=== PATIENT | male | born 1945 | race Caucasian/White ===

== ENCOUNTER → 2016-12-07 | Outpatient (CLI) | payer BC ==
[~2016-12-07] MED LIST: ADVIN25/60 INH; ALBU1AER9 INH; ASPCH81X PO; ATOR-24 PO; CHOL1000 PO; FEXO1TAB49 PO; LANS30CA12 PO; MULT-506 PO; PLAVIX75 PO; POTA10CA28 PO; RXC5 PO; VNTHFA/IN INH; XRL15 PO
--- NOTE | 2016-12-07 09:34 | DIAGNOSTIC IMAGING REPORT ---
RIGHT HAND MIN 3 VIEWS ROUTINE CLINICAL HISTORY: Right hand pain. Arthritis. COMPARISON: Right thumb radiograph January 10, 2010 FINDINGS: Alignment of the right hand is anatomic. There is severe osteoarthritis of the right first carpometacarpal joint. No fracture or suspicious lesion is identified on this exam. Juxta-articular lucencies are noted adjacent to multiple articulations. There is mild joint space narrowing within multiple articulations of the right hand. There is no periarticular osteopenia. IMPRESSION: 1. Severe osteoarthritis of the right first carpometacarpal joint. 2. Mild to moderate joint space narrowing within multiple interphalangeal joints with osteophytosis which suggest osteoarthritis. 3. Multiple juxta-articular lucencies with sclerotic margins. These could reflect cysts or erosions. Electronically signed by: Riaz Dyer M.D. 12/07/2016 9:32 AM Dictated Date/Time: 12/07/2016 9:29 AM
--- NOTE | 2016-12-07 09:37 | DIAGNOSTIC IMAGING REPORT ---
LEFT HAND 3 VIEWS CLINICAL HISTORY: Arthritis. Hand pain. FINDINGS: 3 views of the left hand are compared to study dated 11/01/2015. The skeletal structures are osteopenic. No fracture is seen. There is osteoarthritic change identified involving the interphalangeal joints, distal greater than proximal. Mild erosive change is seen in the second through fifth distal interphalangeal joints, greatest in the second and third digits. There is advanced arthritic change at the first carpometacarpal articulation with bony sclerosis, subchondral cyst formation, overgrowth, and mild subluxation. Mild degenerative change is seen at the first metacarpophalangeal joint and at the radiocarpal articulation. The overlying soft tissues are within normal limits. IMPRESSION: 1. Osteopenia with no acute bony abnormality identified. 2. Advanced osteoarthritic change is seen at the first carpometacarpal joint. 3. Arthritic change is seen involving the interphalangeal joints, distal greater than proximal. Mild erosive osteoarthritis involving the distal interphalangeal joints is detailed above. Electronically signed by: Angelo Hauser M.D. 12/07/2016 9:36 AM Dictated Date/Time: 12/07/2016 9:33 AM
[2016-12-07 10:45] LABS: RHEUMATOID FACTOR < 10.0 U/mL (0-15); TOTAL IRON BINDING CAPACITY 300 mcg/dl (250-450)
== END | disposition home or self-care (01) ==
LOC: C.RAD1850 09:13
PROVIDERS: ATTEND Internal Medicine Rheumatology
DX: M19.041 Primary osteoarthritis, right hand (principal); M25.541 Pain in joints of right hand

== ENCOUNTER → 2017-01-08 | Outpatient (CLI) | payer BC ==
--- NOTE | 2017-01-08 11:09 | DIAGNOSTIC IMAGING REPORT ---
RENAL ULTRASOUND CLINICAL HISTORY: Renal cyst. Nephrolithiasis. COMPARISON STUDY: CT of the abdomen and pelvis April 08, 2016 and IVP July 19, 2016. TECHNIQUE: Sonography of the kidneys and the urinary bladder was performed. FINDINGS: A fluid-filled abnormality along the left lateral aspect of the bladder represents a portion of the penile implant. There is no hydronephrosis. The right kidney measures 11.3 x 5.2 x 5 cm and the left measures 11.1 x 5.6 x 5.8 cm. Several bilateral renal calculi measure up to approximately 6 mm. There is a 1.6 cm right renal cyst with a thin septation. Mild prominence of the left renal pelvis is noted. There is no hydronephrosis. Both ureteral jets were identified. IMPRESSION: 1. No hydronephrosis. Mild dilatation of the left renal pelvis without hydronephrosis. 2. Nephrolithiasis. 3. Several renal cysts. Electronically signed by: Riaz Dyer M.D. 01/08/2017 11:08 AM Dictated Date/Time: 01/08/2017 11:05 AM
== END | disposition home or self-care (01) ==
LOC: C.ULTR 10:16
PROVIDERS: ATTEND Urology
DX: N20.0 Calculus of kidney (principal); N28.1 Cyst of kidney, acquired

== ENCOUNTER 2017-07-11 21:44 | Emergency (ER) | payer BC ==
[~2017-07-11] VITALS: Ht 165.1 cm; Wt 80.5 kg
[2017-07-11 21:50] VITALS: TEMP 36.6; Ht 165.1 cm; Wt 80.5 kg
[2017-07-11 22:46] LABS: BASO % 0.1 %; BASO ABS # 0.01 K/uL (0-0.2); COMPLETE YES; EOS % 1.6 %; HEMATOCRIT 42.7 % (42-52); IG% 0.1 %; LYMPH % 21.9 %; MEAN CORPUSCULAR HEMOGLOBIN 30.6 pg (25-34); MEAN CORPUSCULAR HGB CONC 34.4 g/dl (32-36); MEAN PLATELET VOLUME 9.4 fL (7.4-10.4); MONO % 8.8 %; NEUT % 67.5 %; PLATELET COUNT 142 K/uL (130-400); WHITE BLOOD COUNT 7.29 K/uL (4.8-10.8)
[2017-07-11 22:50] VITALS: O2SAT 95
[2017-07-11 22:56] LABS: PARTIAL THROMBOPLASTIN RATIO 1.1; PROTHROMBIN TIME (PATIENT) 10.3 SECONDS (9.0-12.0)
[2017-07-11 22:59] LABS: POINT OF CARE TROPONIN I < 0.030 ng/ml (0-0.045)
--- NOTE | 2017-07-11 23:01 | DIAGNOSTIC IMAGING REPORT ---
SINGLE VIEW CHEST CLINICAL HISTORY: Right upper back pain. FINDINGS: An AP, portable, upright chest radiograph is compared to study dated 07/07/2016 and correlated with chest CT dated 04/08/2016. The examination is degraded by portable technique and patient rotation. The heart is top normal for projection and there is atherosclerotic calcification of the thoracic aorta. The pulmonary vasculature is noncongested. Chronic interstitial thickening similar to previous. Bibasilar airspace opacities are typical in appearance for atelectasis. No large pleural effusion or pneumothorax is seen. The skeletal structures are osteopenic. The bony thorax is grossly intact. IMPRESSION: No acute cardiopulmonary abnormality. Electronically signed by: Angelo Hauser M.D. 07/11/2017 11:00 PM Dictated Date/Time: 07/11/2017 10:59 PM
[2017-07-11 23:02] LABS: BLOOD UREA NITROGEN 22 mg/dl (7-18); GLUCOSE 112 mg/dl (70-99)
[2017-07-11 23:03] LABS: ALT/SGPT 38 U/L (12-78); BUN/CREATININE RATIO 15.9 (10-20); CALCIUM 8.8 mg/dl (8.5-10.1); CARBON DIOXIDE 25 mmol/L (21-32); CHLORIDE 107 mmol/L (98-107); POTASSIUM 3.9 mmol/L (3.5-5.1); SODIUM 139 mmol/L (136-145)
[2017-07-11 23:06] LABS: ALKALINE PHOSPHATASE 89 U/L (45-117); AST/SGOT 25 U/L (15-37)
[2017-07-12 00:38] LABS: MANUAL MICROSCOPIC REQUIRED? NO; REVIEW REQ? NO; URINE APPEARANCE CLEAR (CLEAR); URINE BILIRUBIN NEG (NEG); URINE COLOR ORANGE; URINE EPITHELIAL CELL AUTO 0-5 /lpf (0-5); URINE NITRITE NEG (NEG); URINE PH 5.5 (4.5-7.5); URINE SPECIFIC GRAVITY 1.018 (1.000-1.030); UROBILINOGEN NEG (NEG); ZZUR CULT IF INDIC CLEAN CATCH NO
[2017-07-12 01:11] LABS: CKMB/CK RATIO 1.5 (0-3.0)
--- NOTE | 2017-07-12 01:53 | EMERGENCY ROOM VISIT NOTE ---
ED Visit Note First contact with patient: 22:00 Pt seen and examined at bedside. Pt with stable VS. Reviewed labs and imaging. Pt aware of all results and need for close f/u and was agreeable with plan. Well appearing at time of DC.
[2017-07-12 01:56] VITALS: BP 134/73; PULSE 58; O2SAT 96
--- NOTE | 2017-07-12 06:34 | DIAGNOSTIC IMAGING REPORT ---
(RENAL)RETROPERITON COMP HISTORY: Flank pain right flank pain, ? stone COMPARISON: 01/08/2017 FINDINGS: Right kidney: Maximum dimension 10.2 cm. Mild fullness right renal pelvis. No definite renal calcifications. Left kidney: Maximum dimension 10.9 cm. Mild hydronephrosis. No definite obstructing calcifications. Bladder: No bladder wall thickening. The bilateral ureteral jets were identified. IMPRESSION: Mild left and to lesser extent right renal hydronephrosis. Several very small cysts. No definite renal calcifications. The above report was generated using voice recognition software. It may contain grammatical, syntax or spelling errors. Electronically signed by: Reece Peoples M.D. 07/12/2017 6:32 AM Dictated Date/Time: 07/12/2017 6:30 AM
--- NOTE | 2017-07-12 06:38 | EMERGENCY ROOM VISIT NOTE ---
History First contact with patient: 22:00 Chief Complaint: HEMATURIA Stated Complaint: URINATING BLOOD AND CLOTS Nursing Triage Summary: PT has blood in urine today with clots. PT HX of PE's and kidney stones. PT states "I saw my PCP about a week ago because I had pain and blood in my urine. they put my on bactrim and even though I did not have an infection I finished all the medicine" PT has pain to right flank area. History of Present Illness The patient is a 71 year old male who presents to the Emergency Room with complaints of hematuria with occasional right flank mid back pain for the past 2 weeks he was on Bactrim by the family care doctor with no change in symptoms. Patient states he's been short of breath for over the past 2 years with unclear etiology. This is unchanged. Patient initially saw the family care DrTone and was placed in antibiotics but was told there is no infection. Patient follows with urology, Dr. Eubanks for history of kidney stones. He has appointment in September. He has a penile implant. He has had blood clots before in the past and is currently only on a baby aspirin and Plavix. Patient denies chest pain, increasing dyspnea, cough, abdominal pain, fever, chills, nausea, vomiting, diarrhea. No rectal pain. Review of Systems See HPI for pertinent positives & negatives. A total of 10 systems reviewed and were otherwise negative. Past Medical/Surgical History Medical Problems: (1) BPH (benign prostatic hypertrophy) (2) Esophageal Reflux (3) Hematuria (4) Hydronephrosis of left kidney (5) Hypothyroidism (6) Left ureteral stone (7) Pulmonary emboli Surgical Problems: (1) S/P lumbar fusion Family History Cancer Diabetes mellitus Hypertension Kidney stones Social History Smoking Status: Never Smoker Smokeless Tobacco Use: No Drug Use: none Marital Status: Housing Status: lives with family Current/Historical Medications Scheduled Aspirin (Aspirin Chewable), 81 MG PO QAM Atorvastatin (Lipitor), 40 MG PO QAM Cholecalciferol (Vitamin D3), 1 TAB PO QPM Clopidogrel Bisulfate (Plavix), 1 TAB PO QAM Lansoprazole (Prevacid), 30 MG PO QAM Multivitamin (Multivitamin), 1 TAB PO HS Potassium Chloride (Micro-K Ext Rel), 10 MEQ PO QPM Scheduled PRN Albuterol Hfa (Ventolin Hfa), 2-4 PUFFS INH Q6H PRN for Shortness of Breath Physical Exam Vital Signs Date Time Temp Pulse Resp B/P (MAP) Pulse Ox O2 Delivery O2 Flow Rate FiO2 07/12/17 01:56 58 18 134/73 96 07/12/17 00:21 58 18 127/84 96 Room Air 07/11/17 22:54 61 07/11/17 22:50 95 Room Air 07/11/17 21:50 36.6 71 18 157/85 96 Room Air Physical Exam VITALS: Vitals are noted on the nurse's note and reviewed by myself. Vital signs stable. GENERAL: Pleasant male, in no acute distress, nondiaphoretic, well-developed well-nourished. SKIN: The skin was without rashes, erythema, edema, or bruising. There is no tenting of the skin. Capillary reflex less than 2 seconds. HEAD: Normocephalic atraumatic. EARS: External auditory canals clear, tympanic membranes pearly gonzalez without erythema or effusion bilaterally. EYES: Pupils equal round and reactive to light and accommodation. Conjunctivae without injection, sclerae without icterus. Extraocular movements intact. NOSE: Patent, turbinates without inflammation or discharge. MOUTH: Mucous membranes moist. Pharynx without erythema or exudate. Uvula midline. Airway patent. Tongue does not deviate. NECK: Supple without nuchal rigidity. No lymphadenopathy. No thyromegaly. Cervical spine is nontender. No JVD. HEART: Regular rate and rhythm LUNGS: Clear to auscultation bilaterally without wheezes, rales or rhonchi. No dullness to percussion. No retractions or accessory muscle use. ABDOMEN: Positive bowel sounds x 4. Normal tympanic percussion. Soft, nontender, without masses or organomegaly. Medina sign negative. No guarding or rebound tenderness. No CVA tenderness MUSCULOSKELETAL: No muscle atrophy, erythema, or edema noted. No thoracic or lumbar tenderness. NEURO: Patient was alert and oriented to person place and time. Normal sensation to light and sharp touch. No focal neurological deficits. Medical Decision & Procedures Laboratory Results 07/11/17 22:36 Red Blood Count 4.80, Mean Corpuscular Volume 89.0, Mean Corpuscular Hemoglobin 30.6, Mean Corpuscular Hemoglobin Concent 34.4, Mean Platelet Volume 9.4, Neutrophils (%) (Auto) 67.5, Lymphocytes (%) (Auto) 21.9, Monocytes (%) (Auto) 8.8, Eosinophils (%) (Auto) 1.6, Basophils (%) (Auto) 0.1, Neutrophils # (Auto) 4.91, Lymphocytes # (Auto) 1.60, Monocytes # (Auto) 0.64, Eosinophils # (Auto) 0.12, Basophils # (Auto) 0.01 07/11/17 22:36 Test 07/11/17 22:36 07/11/17 22:39 07/12/17 00:00 07/12/17 00:35 White Blood Count 7.29 K/uL (4.8-10.8) Red Blood Count 4.80 M/uL (4.7-6.1) Hemoglobin 14.7 g/dL (14.0-18.0) Hematocrit 42.7 % (42-52) Mean Corpuscular Volume 89.0 fL (80-100) Mean Corpuscular Hemoglobin 30.6 pg (25-34) Mean Corpuscular Hemoglobin Concent 34.4 g/dl (32-36) Platelet Count 142 K/uL (130-400) Mean Platelet Volume 9.4 fL (7.4-10.4) Neutrophils (%) (Auto) 67.5 % Lymphocytes (%) (Auto) 21.9 % Monocytes (%) (Auto) 8.8 % Eosinophils (%) (Auto) 1.6 % Basophils (%) (Auto) 0.1 % Neutrophils # (Auto) 4.91 K/uL (1.4-6.5) Lymphocytes # (Auto) 1.60 K/uL (1.2-3.4) Monocytes # (Auto) 0.64 K/uL (0.11-0.59) Eosinophils # (Auto) 0.12 K/uL (0-0.5) Basophils # (Auto) 0.01 K/uL (0-0.2) RDW Standard Deviation 44.4 fL (36.4-46.3) RDW Coefficient of Variation 13.5 % (11.5-14.5) Immature Granulocyte % (Auto) 0.1 % Immature Granulocyte # (Auto) 0.01 K/uL (0.00-0.02) Prothrombin Time 10.3 SECONDS (9.0-12.0) Prothromb Time International Ratio 1.0 (0.9-1.1) Activated Partial Thromboplast Time 27.4 SECONDS (21.0-31.0) Partial Thromboplastin Ratio 1.1 Anion Gap 6.0 mmol/L (3-11) Est Creatinine Clear Calc Drug Dose 46.6 ml/min Estimated GFR () 57.8 Estimated GFR (Non- 49.8 BUN/Creatinine Ratio 15.9 (10-20) Calcium Level 8.8 mg/dl (8.5-10.1) Total Bilirubin 0.2 mg/dl (0.2-1) Direct Bilirubin < 0.1 mg/dl (0-0.2) Aspartate Amino Transf (AST/SGOT) 25 U/L (15-37) Alanine Aminotransferase (ALT/SGPT) 38 U/L (12-78) Alkaline Phosphatase 89 U/L (45-117) Total Creatine Kinase 109 U/L (39-308) Creatine Kinase MB 1.6 ng/ml (0.5-3.6) Total Protein 7.0 gm/dl (6.4-8.2) Albumin 3.6 gm/dl (3.4-5.0) Lipase 256 U/L (73-393) Bedside D-Dimer 202 ng/mlFEU (0-450) Urine Color ORANGE Urine Appearance CLEAR (CLEAR) Urine pH 5.5 (4.5-7.5) Urine Specific [place] 1.018 (1.000-1.030) Urine Protein 1+ (NEG) Urine Glucose (UA) NEG (NEG) Urine Ketones NEG (NEG) Urine Occult Blood 3+ (NEG) Urine Nitrite NEG (NEG) Urine Bilirubin NEG (NEG) Urine Urobilinogen NEG (NEG) Urine Leukocyte Esterase TRACE (NEG) Urine WBC (Auto) 1-5 /hpf (0-5) Urine RBC (Auto) 5-10 /hpf (0-4) Urine Hyaline Casts (Auto) 1-5 /lpf (0-5) Urine Epithelial Cells (Auto) 0-5 /lpf (0-5) Urine Bacteria (Auto) NEG (NEG) Bedside Troponin I < 0.030 ng/ml (0-0.045) Test 07/12/17 00:45 Creatine Kinase MB Ratio (0-3.0) ED Course Prior records/ancillary studies reviewed. Triage Nursing notes reviewed. Additional history obtained from family. The patient's history was concerning for hematuria and back pain. Differential diagnosis: Etiologies such as PE, kidney stone, UTI, musculoskeletal, disc herniation, fracture, aortic disease, metastatic disease, cord compression, discitis, infection, renal colic, gastrointestinal, acute exacerbation of chronic back pain, sciatica, cauda equina, as well as others were entertained. Physical findings: As above. No focal neurologic findings noted. ER treatment provided: By mouth fluids On reassessment the patient felt better. Diagnostics interpreted by me: EKG: Normal sinus, left anterior fascicular block, no acute ST-T wave changes, rate of 59. Impression sinus bradycardia with left anterior fascicular block interpreted by myself. The labs revealed stable H&H. Negative troponin 2. Urine without signs of infection Imaging studies: SINGLE VIEW CHEST CLINICAL HISTORY: Right upper back pain. FINDINGS: An AP, portable, upright chest radiograph is compared to study dated 07/07/2016 and correlated with chest CT dated 04/08/2016. The examination is degraded by portable technique and patient rotation. The heart is top normal for projection and there is atherosclerotic calcification of the thoracic aorta. The pulmonary vasculature is noncongested. Chronic interstitial thickening similar to previous. Bibasilar airspace opacities are typical in appearance for atelectasis. No large pleural effusion or pneumothorax is seen. The skeletal structures are osteopenic. The bony thorax is grossly intact. IMPRESSION: No acute cardiopulmonary abnormality. Electronically signed by: Angelo Hauser M.D. COMPARISON: 01/08/2017 FINDINGS: Right kidney: Maximum dimension 10.2 cm. Mild fullness right renal pelvis. No definite renal calcifications. Left kidney: Maximum dimension 10.9 cm. Mild hydronephrosis. No definite obstructing calcifications. Bladder: No bladder wall thickening. The bilateral ureteral jets were identified. IMPRESSION: Mild left and to lesser extent right renal hydronephrosis. Several very small cysts. No definite renal calcifications. The above report was generated using voice recognition software. It may contain grammatical, syntax or spelling errors. Electronically signed by: Reece Peoples M.D. This appears to be consistent with hematuria and mid back pain. Patient had unremarkable workup as above. 2 negative troponins. normal EKG. Stable H&H. No UTI. He was advised follow-up with his urologist within the week or so and his family care doctor or here in the ER sooner for chest pain, worsening breathing, was urinating, worsening signs or symptoms or as needed. Patient was neurovascular and neurologically intact. He is well-appearing. No signs of infection. The pt informed about the findings as listed above. All questions were answered and pleased with the treatment. Return instructions were outlined and the patient was discharged in stable condition. Referral: The patient was referred back to urology and primary care physician for follow- up in 2 to 3 days for a recheck of the current condition. Case reviewed with my attending Medical Decision As above Medication Reconcilliation Current Medication List: was personally reviewed by me Blood Pressure Screening Patient's blood pressure: Normal blood pressure Impression Primary Impression: Dyspnea Additional Impressions: Mid back pain Hematuria Departure Information Dispostion Home / Self-Care Condition GOOD Forms WORK / SCHOOL INSTRUCTIONS, HOME CARE DOCUMENTATION FORM, IMPORTANT VISIT INFORMATION Patient Instructions My [facility] Additional Instructions Call your urologist in the morning for a follow-up within the week. Rest and drink plenty of fluids as tolerated. Continue current medications. Avoid strenuous activities and anything that worsens your pain. Resume normal activities once your symptoms resolve. Return to the ER immediately for worsening or persistent back pain, abdominal pain, vomiting, fevers, chest pains, difficulty breathing, worsening of your condition, or as needed. Follow up with your primary physician in 2-3 days for a recheck of your current condition. Problem Qualifiers Primary Impression: Dyspnea Dyspnea type: dyspnea on exertion Qualified Codes: R06.09 - Other forms of dyspnea
== END 2017-07-12 01:50 | disposition home or self-care (01) ==
LOC: C.EDB 21:45
DX: R06.09 Other forms of dyspnea (principal); M54.5 Low back pain; R31.9 Hematuria, unspecified; N40.0 Benign prostatic hyperplasia without lower urinary tract symptoms; K21.9 Gastro-esophageal reflux disease without esophagitis; E03.9 Hypothyroidism, unspecified; Z83.3 Family history of diabetes mellitus; Z82.49 Family history of ischemic heart disease and other diseases of the circulatory system; Z79.82 Long term (current) use of aspirin

== ENCOUNTER → 2017-08-15 | Day surgery (SDC) | payer BC ==
[2017-07-11 08:35] VITALS: BMI 28.0
[~2017-08-15] VITALS: Ht 165.1 cm; Wt 77.3 kg
[~2017-08-15] MED LIST changes: -ADVIN25/60 INH; -ALBU1AER9 INH; -FEXO1TAB49 PO; +LIDOCAINE HCL 2% 2 ML VIAL (20MG/ML) ONE; +PROPOFOL IV EMULSION 10 MG/ML 20 ML VIAL IV ONE; -RXC5 PO; -XRL15 PO
[2017-08-15 12:43] VITALS: Ht 165.1 cm; Wt 77.3 kg
[2017-08-15 12:50] VITALS: TEMP 36.6
--- NOTE | 2017-08-15 13:16 | Endo History and Physical ---
History & Physical Date of Service: Aug 15, 2017. Chief Complaint: hx polyps Referring Physician: Dr. Hansen History of Present Illness For colonoscopy Past Surgical History Hx Cardiac Surgery: Yes (HEART CATH-1 STENT) Hx Internal Defibrillator: No Hx Pacemaker: No Hx Abdominal Surgery: Yes (APPY) Hx of Implantable Prosthesis: No Hx Post-Op Nausea and Vomiting: No Hx Cancer Surgery: No Hx Thoracic Surgery: No Hx Orthopedic: Yes (LUMBAR LAMINECTOMY, LUMBAR FUSION) Hx Urinary Tract Surgery: Yes (CYSTOSCOPY AND STENT PLACED) Family History None Social History Smoking Status: Never Smoker Hx Substance Use: No Hx Alcohol Use: No Allergies Coded Allergies: Acetaminophen (Verified Allergy, Unknown, RASH, 08/15/17) Dust (Verified Allergy, Unknown, itching, 08/15/17) Molds and Smuts (Verified Allergy, Unknown, unknown, 08/15/17) Mushroom (Verified Allergy, Unknown, unknown, 08/15/17) Michael Grass (Verified Allergy, Unknown, unknown, 08/15/17) Cefazolin (Verified Adverse Reaction, Unknown, ELEVATED LIVER ENZYMES, 05/23) Cephalosporins (Verified Adverse Reaction, Unknown, ELEVATED LIVER ENZYMES , 08/15/17) Current Medications Reported Home Medications Medications Dose Route/Sig Max Daily Dose Days Date Category Vitamin D3 (Cholecalciferol) 1,000 Unit Tab 1 Tab PO QPM 07/11/17 Reported Ventolin Hfa (Albuterol) 200 Puffs/01561 Mcg Aers 2-4 Puffs INH Q6H PRN 07/11/17 Reported Micro-K Ext Rel (Potassium Chloride) 10 Meq Capcr 10 Meq PO QPM 07/11/17 Reported Plavix (Clopidogrel Bisulfate) 75 Mg Tab 1 Tab PO QAM 07/11/17 Reported Multivitamin (Multivitamins) Tab 1 Tab PO HS 07/11/17 Reported Lipitor (Atorvastatin Calcium) 40 Mg Tab 40 Mg PO QAM 07/11/17 Reported Aspirin Chewable (Aspirin) 81 Mg Chew 81 Mg PO QAM 07/11/17 Reported Prevacid (Lansoprazole) 30 Mg Capcr 30 Mg PO QAM 03/28/16 Reported Vital Signs Weight (Kilograms): 77.27 Height (Feet): 5 Height (Inches): 5 Date Time Temp Pulse Resp B/P (MAP) Pulse Ox O2 Delivery O2 Flow Rate FiO2 08/15/17 12:50 36.6 64 18 134/81 (98) 96 Room Air Physical Exam General Appearance: WD/WN Respiratory/Chest: Respiratory effort: no dyspnea Cardiovascular: Heart Auscultation: RRR Abdomen: Inspection & Palpation: soft Assessment and Plan Hx of polyps for colonoscopy
--- NOTE | 2017-08-15 13:39 | Discharge Instructions ---
Endoscopy Patient Instructions Date / Procedure(s) Performed Aug 15, 2017. Colonoscopy Allergy Information Coded Allergies: Acetaminophen (Verified Allergy, Unknown, RASH, 08/15/17) Dust (Verified Allergy, Unknown, itching, 08/15/17) Molds and Smuts (Verified Allergy, Unknown, unknown, 08/15/17) Mushroom (Verified Allergy, Unknown, unknown, 08/15/17) Michael Grass (Verified Allergy, Unknown, unknown, 08/15/17) Cefazolin (Verified Adverse Reaction, Unknown, ELEVATED LIVER ENZYMES, 05/23) Cephalosporins (Verified Adverse Reaction, Unknown, ELEVATED LIVER ENZYMES , 08/15/17) Discharge Date / Findings Aug 15, 2017. diverticulosis, hemorrhoids, polyp Medication Instructions Restart Stopped Medication(s): resume meds Reported Home Medications Medications Dose Route/Sig Max Daily Dose Days Date Category Vitamin D3 (Cholecalciferol) 1,000 Unit Tab 1 Tab PO QPM 07/11/17 Reported Ventolin Hfa (Albuterol) 200 Puffs/69160 Mcg Aers 2-4 Puffs INH Q6H PRN 07/11/17 Reported Micro-K Ext Rel (Potassium Chloride) 10 Meq Capcr 10 Meq PO QPM 07/11/17 Reported Plavix (Clopidogrel Bisulfate) 75 Mg Tab 1 Tab PO QAM 07/11/17 Reported Multivitamin (Multivitamins) Tab 1 Tab PO HS 07/11/17 Reported Lipitor (Atorvastatin Calcium) 40 Mg Tab 40 Mg PO QAM 07/11/17 Reported Aspirin Chewable (Aspirin) 81 Mg Chew 81 Mg PO QAM 07/11/17 Reported Prevacid (Lansoprazole) 30 Mg Capcr 30 Mg PO QAM 03/28/16 Reported Provider Instructions Activity Restrictions - No exercising or heavy lifting for 24 hours. - Do not drink alcohol the day of the procedure. - Do not drive a car or operate machinery until the day after the procedure. - Do not make any important decisions or sign important papers in 24 hours after the procedure. Following Day: - Return to full activity which may include returning to work/school. Diet Start your diet with liquids and light foods (jello, soup, juice, toast). Then eat your usual diet if not nauseated. Treatment For Common After Affects For mild abdominal pain, bloating, or excessive gas: - Rest - Eat lightly - Lie on right side Follow-Up Information Follow-up with Dr. Hansen as scheduled Anesthesia Information What You Should Know You have had a procedure that required some medicine to reduce anxiety and discomfort. This treatment is called moderate sedation. After receiving the treatment, you may be sleepy, but you will be able to breathe on your own. The effects of the treatment may last for several hours. Follow these instructions along with Activity/Diet recommendations noted above: * Do NOT do anything where dizziness or clumsiness would be dangerous. * Rest quietly at home today, then you can be up and about tomorrow. * Have a responsible person stay with you the rest of today. * You may have had an I.V. today. If so, you may take the dressing off later today. Recommendations Call your doctor if: * Trouble breathing * Continuous vomiting for more than 24 hours * Temperature above 101 degrees * Severe abdominal pain or bloating * Pain not relieved by pain medicine ordered * There is increased drainage or redness from any incision * A large amount of rectal bleeding greater than 2-3 tablespoons. (If you had a polyp/s removed or have hemorrhoids, a small amount of blood - from the rectum is to be expected.) * You have any unanswered questions or concerns. IN THE EVENT OF A SERIOUS EMERGENCY, GO TO THE NEAREST EMERGENCY ROOM Your discharge instructions were prepared by provider Reji Herman. Patient Instructions Signature Page Dylan Barry Patient (or Guardian) Signature/Date: I have read and understand the instructions given to me by my caregivers. Caregiver/RN/Doctor Signature/Date: The above-named patient and/or guardian has received patient instructions on this date. + Original Patient Signature Page (only) stays with chart. Please make copy for patient.
--- NOTE | 2017-08-15 13:42 | GI REPORT ---
Procedure Date: 08/15/2017 12:51 PM Procedure: Colonoscopy Indications: Personal history of colonic polyps Medicines: Propofol total dose 200 mg IV, Lidocaine 40 mg IV Complications: No immediate complications. Estimated Blood Loss: Estimated blood loss was minimal. Procedure: Pre-Anesthesia Assessment: - Prior to the procedure, a History and Physical was performed, and patient medications, allergies and sensitivities were reviewed. The patient's tolerance of previous anesthesia was reviewed. - The risks and benefits of the procedure and the sedation options and risks were discussed with the patient. All questions were answered and informed consent was obtained. After I obtained informed consent, the scope was passed under direct vision. Throughout the procedure, the patient's blood pressure, pulse, and oxygen saturations were monitored continuously. The scope was introduced through the anus and advanced to the cecum, identified by appendiceal orifice and ileocecal valve. The colonoscopy was performed without difficulty. The patient tolerated the procedure well. The quality of the bowel preparation was excellent. Findings: Non-bleeding internal hemorrhoids were found during endoscopy. The hemorrhoids were moderate. A single small-mouthed diverticulum was found in the ascending colon. A 4 mm polyp was found in the sigmoid colon. The polyp was sessile. The polyp was removed with a cold snare. Resection and retrieval were complete. Estimated blood loss was minimal. Impression: - Non-bleeding internal hemorrhoids. - Diverticulosis in the ascending colon. - One 4 mm polyp in the sigmoid colon, removed with a cold snare. Resected and retrieved. Recommendation: - Discharge patient to home (ambulatory). - Continue present medications. - Await pathology results. - Return to primary care physician PRN. Reji Herman M.D. Reji Herman MD 08/15/2017 1:42:07 PM This report has been signed electronically. Note Initiated On: 08/15/2017 12:51 PM I attest to the content of the Intraoperative Record and orders documented therein, exceptions below
--- NOTE | 2017-08-15 14:05 | Anesthesiology Progress Note ---
Anesthesia Post Op Note Date & Time Aug 15, 2017 at 14:05 Vital Signs Pain Intensity: 0 Vital Signs Past 12 Hours Date Time Temp Pulse Resp B/P (MAP) Pulse Ox O2 Delivery O2 Flow Rate FiO2 08/15/17 13:52 56 18 120/70 (87) 97 Room Air 08/15/17 13:37 55 16 108/61 (77) 98 Room Air 08/15/17 12:50 36.6 64 18 134/81 (98) 96 Room Air Notes Mental Status: alert / awake / arousable, participated in evaluation Pt Amnestic to Procedure: Yes Nausea / Vomiting: adequately controlled Pain: adequately controlled Airway Patency, RR, SpO2: stable & adequate BP & HR: stable & adequate Hydration State: stable & adequate Anesthetic Complications: no major complications apparent
[2017-08-15 14:08] VITALS: BP 133/74; PULSE 56; O2SAT 95
== END | disposition home or self-care (01) ==
LOC: C.GI 12:16
PROVIDERS: ATTEND Internal Medicine Gastroenterology
DX: Z12.11 Encounter for screening for malignant neoplasm of colon (principal); Z86.010 Personal history of colon polyps; K63.5 Polyp of colon; K64.8 Other hemorrhoids; K57.30 Diverticulosis of large intestine without perforation or abscess without bleeding; I25.10 Atherosclerotic heart disease of native coronary artery without angina pectoris; K21.9 Gastro-esophageal reflux disease without esophagitis; Z86.711 Personal history of pulmonary embolism; Z79.82 Long term (current) use of aspirin; Z98.1 Arthrodesis status

== ENCOUNTER → 2017-10-29 | Outpatient (CLI) | payer BC ==
[~2017-10-29] MED LIST changes: -LIDOCAINE HCL 2% 2 ML VIAL (20MG/ML) ONE; -PROPOFOL IV EMULSION 10 MG/ML 20 ML VIAL IV ONE
--- NOTE | 2017-10-29 08:47 | DIAGNOSTIC IMAGING REPORT ---
KUB CLINICAL HISTORY: Renal cyst. COMPARISON STUDY: CT of the abdomen and pelvis April 08, 2016 and renal ultrasound July 11, 2017. FINDINGS: Lumbar spine decompression and fusion is noted. A left pelvic calcification represents a phlebolith. A penile pump is incidentally noted. There is no evidence for a bowel obstruction. No ureteral calculi are identified. No definite renal calculi are identified although the renal shadows are partially obscured by stool. IMPRESSION: 1. No ureteral calculi identified. 2. No renal calculi identified although both renal shadows partially obscured by stool. Electronically signed by: Riaz Dyer M.D. 10/29/2017 8:45 AM Dictated Date/Time: 10/29/2017 8:42 AM
== END | disposition home or self-care (01) ==
LOC: C.RAD 08:18
PROVIDERS: ATTEND Urology
DX: N28.1 Cyst of kidney, acquired (principal)

== ENCOUNTER → 2017-11-21 | Outpatient (CLI) | payer BC ==
[2017-11-21 12:22] LABS: ALBUMIN 3.5 gm/dl (3.4-5.0); ALT/SGPT 29 U/L (12-78); AST/SGOT 25 U/L (15-37); BLOOD UREA NITROGEN 21 mg/dl (7-18); CALCIUM 8.7 mg/dl (8.5-10.1); CARBON DIOXIDE 26 mmol/L (21-32); CHOLESTEROL 118 mg/dl (0-200); CREATININE 1.23 mg/dl (0.60-1.40); GLUCOSE 87 mg/dl (70-99); POTASSIUM 4.3 mmol/L (3.5-5.1); SODIUM 139 mmol/L (136-145)
[2017-11-21 12:25] LABS: ALKALINE PHOSPHATASE 87 U/L (45-117); LDL CHOLESTEROL CALCULATED 49 mg/dl; TOTAL PROTEIN 6.6 gm/dl (6.4-8.2)
== END | disposition home or self-care (01) ==
LOC: C.LAB 10:05
PROVIDERS: ATTEND Urology
DX: R31.0 Gross hematuria (principal); N40.1 Benign prostatic hyperplasia with lower urinary tract symptoms; E78.5 Hyperlipidemia, unspecified; M25.50 Pain in unspecified joint; Z86.39 Personal history of other endocrine, nutritional and metabolic disease; Z13.1 Encounter for screening for diabetes mellitus; Z12.5 Encounter for screening for malignant neoplasm of prostate

== ENCOUNTER → 2017-11-23 | Outpatient (CLI) | payer BC ==
--- NOTE | 2017-11-23 10:38 | DIAGNOSTIC IMAGING REPORT ---
ABDOMEN LIMITED (US) CLINICAL HISTORY: 72 years-old Male presenting with NAUSEA/ EPIGASTRIC PAIN. TECHNIQUE: Real-time grayscale and limited color Doppler ultrasound imaging of the abdomen limited to the right upper quadrant was performed. COMPARISON: CT from 04/08/2016. FINDINGS: Pancreas: Largely obscured due to overlying bowel gas. Liver: Normal echogenicity and echotexture. The liver measures 15.2 cm in maximal sagittal dimension. No sonographic evidence of hepatic mass. Main portal vein patent with normal directional flow. Biliary: No intrahepatic biliary ductal dilatation. Common bile duct measures up to 3 mm in diameter. Gallbladder: No evidence of gallstones, gallbladder wall thickening, gallbladder distention, or pericholecystic fluid or inflammatory change. Right kidney: Avascular anechoic lesion at the upper pole the right kidney compatible with simple cyst. No hydronephrosis. Ascites: None. Other: None. IMPRESSION: No cholelithiasis or biliary ductal dilatation. Electronically signed by: Sami rBo M.D. 11/23/2017 10:37 AM Dictated Date/Time: 11/23/2017 10:11 AM
== END | disposition home or self-care (01) ==
LOC: C.ULTR 08:52
PROVIDERS: ATTEND Nurse Practitioner Family
DX: R10.13 Epigastric pain (principal); R11.0 Nausea

== ENCOUNTER → 2017-12-05 | Outpatient (CLI) | payer BC ==
[~2017-12-05] MED LIST changes: +OPTIRAY 320 IV PRN
--- NOTE | 2017-12-05 14:33 | DIAGNOSTIC IMAGING REPORT ---
ABD/PELVIS COMBO CT DOSE: 1924.16 mGycm HISTORY: Pain. Edema. LT LEG PAIN/SWELLING TECHNIQUE: Multiaxial CT images of the abdomen and pelvis were performed pre and post intravenous contrast enhancement. A dose lowering technique was utilized adhering to the principles of ALARA. COMPARISON STUDY: 04/08/2016 FINDINGS: Interval removal of the left ureteral stent. Minimal focal atelectatic change right lung base. Liver enhances uniformly. Kidneys demonstrate a small stable upper pole right renal cortical cyst. There is no evidence for hydronephrosis. There are extrarenal pelves bilaterally unchanged in the prior study. Pancreas is uniform. Bowel pattern is considered nonobstructive throughout. There is a reservoir and pump within the left lateral pelvic region. This is unchanged compared to several prior exams. Pain now prosthesis are present. There are mild degenerative changes of the osseous structures. IMPRESSION: 1. No acute abnormality of the upper urinary tracts. 2. Small stable right renal cyst. 3. Abdomen and pelvis is otherwise negative. 4. Stable postoperative changes to the lumbar spine. The above report was generated using voice recognition software. It may contain grammatical, syntax or spelling errors. Electronically signed by: Reece Peoples M.D. 12/05/2017 2:32 PM Dictated Date/Time: 12/05/2017 2:24 PM
== END | disposition home or self-care (01) ==
LOC: C.CTS 13:26
PROVIDERS: ATTEND Urology
DX: R31.0 Gross hematuria (principal)

== ENCOUNTER 2021-08-08 10:51 | Observation (INO) ==
[2021-08-08 12:27] LABS: Basophils # (auto) 0.03 K/uL (0-0.2); Basophils % (auto) 0.4 %; Eosinophils # (auto) 0.55 K/uL (0-0.5); Eosinophils % (auto) 7.2 %; Hematocrit (blood only) 46.4 % (42-52); Hemoglobin 15.7 g/dL (14.0-18.0); Immature Granulocytes # (auto) 0.03 K/uL (0.00-0.02); Immature Granulocytes % (auto) 0.4 %; Lymphocytes # (auto) 1.51 K/uL (1.2-3.4); Lymphocytes % (auto) 19.8 %; Mean Corpuscular Hemoglobin 30.4 pg (25-34); Mean Corpuscular Hgb Conc 33.8 g/dL (32-36); Mean Corpuscular Volume 89.7 fL (80-100); Mean Platelet Volume 10.1 fL (7.4-10.4); Monocytes # (auto) 0.48 K/uL (0.11-0.59); Monocytes % (auto) 6.3 %; Neutrophils # (auto) 5.04 K/uL (1.4-6.5); Neutrophils % (auto) 65.9 %; Platelet Count 158 K/uL (130-400); RDW Coefficient of Variation 13.6 % (11.5-14.5); Red Blood Count 5.17 M/uL (4.7-6.1); White Blood Count 7.64 K/uL (4.8-10.8)
[2021-08-08 12:38] LABS: Albumin Level 3.6 gm/dl (3.4-5.0); Aspartate Aminotransferase 24 U/L (15-37); BUN Creatinine Ratio 18.6 (10-20); Blood Urea Nitrogen 24 mg/dl (7-18); Calcium 9.6 mg/dl (8.5-10.1); Carbon Dioxide 24 mmol/L (21-32); Chloride 107 mmol/L (98-107); Creatinine Clr Calc Pharmacy 46.8 ml/min; Est GFR (African American) 62.7 ml/min; Est GFR (Non-African American) 54.1 ml/min; Glucose 123 mg/dl (70-99); Lipase 213 U/L (73-393); Sodium 137 mmol/L (136-145)
[2021-08-08 12:45] LABS: Alanine Aminotransferase 42 (12-78); Alkaline Phosphatase 88 U/L (45-117); Bilirubin,Total 0.5 mg/dl (0.2-1); Globulin 3.6 gm/dl (2.5-4.0); Total Protein 7.2 gm/dl (6.4-8.2); Troponin I < 0.015 ng/ml (0-0.045)
--- NOTE | 2021-08-08 12:55 | XRay Report ---
XR chest 1V portable HISTORY: 76 years-old Male Chest Pain . Acute atypical chest pain COMPARISON: Chest radiographs 01/19/2021 TECHNIQUE: Portable AP view of the chest FINDINGS: Cardiomediastinal and hilar silhouettes are within normal limits. Calcified plaque of the thoracic ao rta. There is no pneumothorax, pleural effusion, airspace consolidation or overt pulmonary edema. The bones appear grossly intact. IMPRESSION: No acute process. ACT 112: Negative or not required by law. The above report was generated using voice recognition software. It may contain grammatical, syntax o r spelling errors. Electronically signed by: Williams Barboza M.D. 08/08/2021 12:53 PM
--- NOTE | 2021-08-08 13:34 | Emergency Department Note ---
Impression & Plan Precordial chest pain, SOB (shortness of breath), History of coronary artery disease ED Provider Note NAME: ABBY MESA AGE: 76 SEX: M : 1945 ARRIVES VIA: Walk-In INFORMANT: [Patient] ED PROVIDER(S): [Angelo Maxwell MD] CHIEF COMPLAINT: Chest pain HISTORY OF PRESENT ILLNESS: The patient is a 76-year-old male who states that he has had a few weeks of what he thinks is bronchitis. He has had some difficulty with his smell and a cough. He has been mildly short of breath and occasionally has heard some wheezing. He is using an albuterol inhaler. The patient is vaccinated x3 for COVID-19 and has had his influenza vaccination. He saw his doctor's office recently and was told this was viral. The patient states that things have not improved with regard to his presumed bronchitis. He has not developed a fever though. Today, about 3 hours ago, he developed some central chest pain that went to his back and into his neck. He was walking in his house from one area to the other. The pain was a 6 on a scale of 1-10. It seemed to wash down over his whole body. The patient presented to the ER for the pain. He states that after about 3 hours, the pain seemed to subside and he is now pain-free. The patient has a history of heart disease, he has 1 stent. At 1 point, the patient thought his pain was a bit better leaning forward as compared to sitting straight up. REVIEW OF SYSTEMS: See HPI for pertinent positives and negatives. A total of ten systems were reviewed and were otherwise negative. PMHx/PSHx: See Below SOCIAL HISTORY: See Below. PHYSICAL EXAM: GENERAL: Patient is in no acute distress. HEENT: No acute trauma, normocephalic atraumatic, mucous membranes moist, no nasal congestion, no scleral icterus. NECK: No stridor, no adenopathy, no meningismus, trachea is midline. LUNGS: Clear to auscultation bilaterally, no wheeze, no rhonchi, breath sounds equal. Chest: Nontender chest wall. HEART: Without murmurs gallops or rubs, regular rate and rhythm. ABDOMEN: Soft, nontender, bowel sounds positive, no hernias, no peritonitis. EXTREMITIES: No cyanosis or edema, full range of motion of all the joints without pain or difficulty, no signs for acute trauma. NEUROLOGIC: Oriented x 3, no acute motor or sensory deficits, no focal weakness. SKIN: No rash, no jaundice, no diaphoresis. DIFFERENTIAL DIAGNOSIS: Cardiac ischemia, aortic dissection, pulmonary embolism, COVID-19, influenza, bronchitis, pneumothorax, pneumonia, pericarditis, myocarditis, esophageal rupture, GERD, cholecystitis, pancreatitis, musculoskeletal, as well as other pathologies. EMERGENCY DEPARTMENT COURSE/PROCEDURES: ECG: Indication was chest pain. The ECG shows a sinus bradycardia with a rate of 58. There is no ST elevation, no PVCs. The QTc is 402. Potential old septal infarct was noted. Repeat EKG: Indication was chest pain. The ECG shows a normal sinus rhythm with a rate of 77. There is no ST elevation, no PVCs. The QTc is 427. Compared to the ECG from earlier today, I see no significant change. Continuous Cardiac Monitoring: An order was placed for continuous cardiac monitoring. The monitor shows a rate of 72 with normal sinus rhythm. MEDICAL DECISION MAKING: There is no leukocytosis or concerning anemia. There is a normal platelet count. No significant electrolyte abnormality or kidney failure. Cardiac enzyme testing x1 is not consistent with acute cardiac injury. No evidence for pancreatitis. ECG shows a sinus bradycardia, no acute ischemia. Second EKG when he developed some increasing chest pain did not show any significant change from the first. Chest film did not show pneumonia or CHF. No mediastinal widening. Covid, influenza and RSV testing was negative. CT of the chest for dissection did not show any dissection or PE. The patient has a known history of coronary disease. The patient presents with chest pain which sounds potentially cardiac in nature. The patient was given nitroglycerin paste, he was given oral aspirin. I did discuss the case with cardiology. Hospitalization for his complaints was felt warranted. I spoke with the patient and case management to the on-call hospitalist was consulted. Further cardiac work-up is warranted. Past Med/Surg History Medical History Borderline high cholesterol Dyspnea on exertion LAST USE INHALER 6-8 MON AGO Enlarged prostate GERD (gastroesophageal reflux disease) History of colon polyps History of kidney stones Kidney stones Osteoarthritis Paroxysmal nocturnal dyspnea Surgical History History of appendectomy History of back surgery HX OF LUMBAR LAMINECTOMY AND THEN ORIF LUMBAR History of colonoscopy History of heart artery stent APPROX 4-5 YR AGO, STENT X 1 AT [facility] - FOLLOWS WITH DR NUNN History of lithotripsy History of penile implant History of sinus surgery Dr. Man 20+ years ago History of surgery HX JAW SURGERY, NO LIMITATIONS Family History Brother Prostate cancer Congestive heart failure Family history of diabetes mellitus Mother Family history of uterine cancer Social History Smoking Status: Never smoker Second Hand Exposure: Yes (HX); Hx Alcohol Use: No Hx Substance Use: No Preferred Language: Citizen Of [place] Communication Ability: Effective Software Quality Tester Required: No Beliefs That Will Affect Care: None marital status: Current Living Situation: Spouse Feels Safe at Home: Yes Allergies Allergies Allergy/AdvReac Type Severity Reaction Status Date / Time acetaminophen Allergy Intermediate RASH Verified 08/08/21 14:23 house dust Allergy Mild itching, Verified 08/08/21 14:23 sneezy, itchy eyes mushroom Allergy Mild sneezy, Verified 08/08/21 14:23 itchy eyes cefazolin AdvReac Intermediate ELEVATED Verified 08/08/21 14:23 LIVER ENZYMES Cephalosporins AdvReac Intermediate ELEVATED Verified 08/08/21 14:23 LIVER ENZYMES grass pollen AdvReac Mild sneezy, Verified 08/08/21 14:23 itchy eyes mold AdvReac Mild sneezy, Verified 08/08/21 14:23 itchy eyes Home Meds Home Medications Medication Instructions Recorded Confirmed aspirin 81 mg tablet,delayed 81 mg PO QAM 01/04/19 08/08/21 release atorvastatin 40 mg tablet 40 mg PO QAM 01/04/19 08/08/21 fexofenadine 180 mg tablet 180 mg PO Q2D 01/04/19 08/08/21 (Prachi Allergy) ibuprofen 200 mg tablet (Advil) 400 mg PO DIRECTED PRN 01/04/19 08/08/21 lansoprazole 30 mg capsule,delayed 30 mg PO QAM 01/04/19 08/08/21 release multivitamin 1 tab PO QAM 01/04/19 08/08/21 potassium citrate 10 mEq (1,080 10 meq PO HS 01/04/19 08/08/21 mg) tablet,extended release montelukast 10 mg tablet 10 mg PO QPM 10/10/19 08/08/21 (Singulair) cholecalciferol (vitamin D3) 25 25 mcg PO DAILY 01/12/21 08/08/21 mcg (1,000 unit) capsule (Vitamin D3) famotidine 20 mg tablet (Pepcid) 20 mg PO HS 01/12/21 08/08/21 Previous Rx's Medication Instructions Recorded albuterol sulfate 90 mcg/actuation 2 puffs INHALATION Q4H PRN #8.5 gm 10/10/19 aerosol inhaler (Ventolin HFA) Results & Data (ED) Vital Signs Vital Signs - 24 hr 08/08/21 10:54 08/08/21 14:01 08/08/21 14:14 Temperature 36.7 C Temperature Source Temporal Artery Scan Pulse Rate 66 71 Pulse Rate from SpO2 Sensor 71 Respiratory Rate 18 13 Respiratory Effort / Characteristics Non-Labored Respiratory Depth Normal Blood Pressure 170/83 H 140/80 Blood Pressure Mean 112 100 Blood Pressure Position Sitting Pulse Oximetry 97 97 Oxygen Delivery Method Room Air Room Air Sepsis Recent Fever Within 48 Hours No Sepsis New/Unexplained Change in Mental Status No Sepsis Action Taken by Nursing No Action Required 08/08/21 14:33 Temperature Temperature Source Pulse Rate 63 Pulse Rate from SpO2 Sensor Respiratory Rate 13 Respiratory Effort / Characteristics Respiratory Depth Blood Pressure Blood Pressure Mean Blood Pressure Position Pulse Oximetry Oxygen Delivery Method Sepsis Recent Fever Within 48 Hours Sepsis New/Unexplained Change in Mental Status Sepsis Action Taken by Jail Medications Current Medication List: was personally reviewed by me Laboratory Data Attestation: I reviewed the patient's lab results. Result diagrams: 08/08/21 Unknown 08/08/21 Unknown Lab Results 08/08/21 Range/Units 12:47 SARS-CoV-2 (PCR) NEGATIVE (Negative) Influenza Type A (PCR) Negative (Neg) Influenza Type B (PCR) Negative (Neg) RSV (RT-PCR) Negative (Neg) Administered Medications Discontinued Medications Al Hydrox/Mg Hydrox/Simethicone (Gi Cocktail Ed Use) 1 dose PO ONE ONE Stop: 08/08/21 14:57 Last Admin: 08/08/21 15:44 Dose: 1 dose Documented by: [id number] Aspirin (Aspirin Chew 324 Mg) 324 mg PO NOW STA Stop: 08/08/21 14:29 Last Admin: 08/08/21 14:37 Dose: 324 mg Documented by: [id number] Ioversol (Optiray 320 125ml) 120 ml IV ONCE ONE Stop: 08/08/21 13:57 Last Admin: 08/08/21 13:50 Dose: 120 ml Documented by: [id number] Nitroglycerin (Nitroglycerin 2% Ointment 30gm Tube) 1 inch EXT NOW STA Stop: 08/08/21 14:29 Last Admin: 08/08/21 14:37 Dose: 1 inch Documented by: [id number] Prednisone (Prednisone 20 Mg Tab) 40 mg PO NOW STA Stop: 08/08/21 17:56 Last Admin: 08/08/21 18:12 Dose: 40 mg Documented by: [id number] Imaging Data Radiologist's Impression: Chest X-Ray 08/08/21 12:17 XR chest 1V portable HISTORY: 76 years-old Male Chest Pain . Acute atypical chest pain COMPARISON: Chest radiographs 01/19/2021 TECHNIQUE: Portable AP view of the chest FINDINGS: Cardiomediastinal and hilar silhouettes are within normal limits. Calcified plaque of the thoracic aorta. There is no pneumothorax, pleural effusion, air space consolidation or overt pulmonary edema. The bones appear grossly intact. IMPRESSION: No acute process. ACT 112: Negative or not required by law. The above report was generated using voice recognition software. It may contain grammatical, syntax or spelling errors. Electronically signed by: Williams Barboza M.D. 08/08/2021 12:53 PM Chest CTA 08/08/21 13:27 CT ANGIOGRAM OF THE CHEST COMBO CLINICAL HISTORY: Atypical chest pain. Hypertension. COMPARISON STUDY: Chest x-ray dated 08/08/2021. Chest CT dated 04/08/2016. TECHNIQUE: Before and following the IV administration of 120 cc of Optiray 320, CT angiogram of the chest was performed from the thoracic inlet to the upper abdomen utilizing the dissection protocol. Images are reviewed in the axial, sagittal, and coronal planes. 3-D MIPS images are created and assessed. IV contrast was administered without complication. A dose lowering technique was utilized adhering to the principles of ALARA. CT DOSE: 722.93 mGy.cm FINDINGS: Thyroid: Imaged portions of the thyroid gland are normal in size and attenuation. Thoracic aorta: No intramural hematoma is seen on the unenhanced series. The thoracic aorta is normal in caliber and demonstrates standard 3-vessel arch anatomy. No dissection is seen. The arch vessels are widely patent. Pulmonary vasculature: The pulmonary trunk is normal in caliber. There are no filling defects within the main, lobar, or segmental pulmonary arteries to suggest pulmonary embolus. Heart: The heart is top normal in size and without pericardial effusion. The left coronary artery is densely calcified. Lungs and pleural spaces: No airspace consolidation or pleural effusion is identified. Scarring/atelectasis is present the lung bases. The trachea and central airways are clear. A 6 mm pleural-based nodule in the right middle lobe along the minor fissure is seen on image #191, and a 5 mm pleural-based nodule in the right upper lobe along the minor fissure is seen on image #202. A 4 mm right lower lobe nodule is seen on image #235. Tiny foci of pleural-based nodularity are seen along the left major fissure on images #150 and #155. The majority of these have clearly been present dating back to 2016 and are of doubtful significance. Mediastinum: There is no mediastinal lymphadenopathy. Emma: Clear. Axillae: There is no axillary lymphadenopathy. Upper abdomen: There is a small hiatal hernia. Scattered calcified hepatic gran ulomas are incidentally noted. Partially visualized upper abdominal viscera is within normal limits. Skeletal structures: The skeletal structures are osteopenic. Degenerative change is noted in the shoulders and thoracic spine. No lytic or blastic bony lesions are seen. IMPRESSION: 1. Unremarkable CT angiogram of the thoracic aorta. 2. There is no evidence of pulmonary embolus in the main, lobar, or segmental pulmonary arteries. 3. There is no airspace consolidation typical for pneumonia or pleural effusion. 4. Additional findings as above. ACT 112: Negative or not required by law. Electronically signed by: Angelo Hauser M.D. 08/08/2021 2:06 PM Discharge Plan Visit Data Chief Complaint: Chest Pain Stated Complaint: CHEST PAIN ED Provider: Angelo Maxwell Discharge Problem: Precordial chest pain, SOB (shortness of breath), History of coronary artery disease Patient Disposition: Admitted As Inpatient Condition: Good Discharge Instructions Interventions: ED Discharge Assessment Last Done: 08/08/21 18:22
--- NOTE | 2021-08-08 13:40 | Electrocardiogram Report ---
Test Reason : Blood Pressure : / mmHG Vent. Rate : 058 BPM Atrial Rate : 058 BPM P-R Int : 176 ms QRS Dur : 086 ms QT Int : 410 ms P-R-T Axes : 052 -55 049 degrees QTc Int : 402 ms Sinus bradycardia Left anterior fascicular block Abnormal ECG When compared with ECG of 19-JAN-2021 09:31, No significant change was found Confirmed by Pablo Yepez ([id number]) on 08/08/2021 1:40:07 PM Referred By: Confirmed By:Pablo Yepez
[2021-08-08 13:49] LABS: Influenza A virus by PCR Negative (Neg); Influenza B virus by PCR Negative (Neg); RSV by PCR Negative (Neg); SARS CoV2 RNA(COVID-19) InHosp NEGATIVE (Negative)
[2021-08-08] MEDS ORDERED: OPTIRAY 320 125ml IV ONE (13:56)
--- NOTE | 2021-08-08 14:07 | CT Scan Report ---
CT ANGIOGRAM OF THE CHEST COMBO CLINICAL HISTORY: Atypical chest pain. Hypertension. COMPARISON STUDY: Chest x-ray dated 08/08/2021. Chest CT dated 04/08/2016. TECHNIQUE: Before and following the IV administration of 120 cc of Optiray 320, CT angiogram of the c hest was performed from the thoracic inlet to the upper abdomen utilizing the dissection protocol. Im ages are reviewed in the axial, sagittal, and coronal planes. 3-D MIPS images are created and assesse d. IV contrast was administered without complication. A dose lowering technique was utilized adherin g to the principles of ALARA. CT DOSE: 722.93 mGy.cm FINDINGS: Thyroid: Imaged portions of the thyroid gland are normal in size and attenuation. Thoracic aorta: No intramural hematoma is seen on the unenhanced series. The thoracic aorta is normal in caliber and demonstrates standard 3-vessel arch anatomy. No dissection is seen. The arch vessels are widely patent. Pulmonary vasculature: The pulmonary trunk is normal in caliber. There are no filling defects within the main, lobar, or segmental pulmonary arteries to suggest pulmonary embolus. Heart: The heart is top normal in size and without pericardial effusion. The left coronary artery is densely calcified. Lungs and pleural spaces: No airspace consolidation or pleural effusion is identified. Scarring/atele ctasis is present the lung bases. The trachea and central airways are clear. A 6 mm pleural-based nod ule in the right middle lobe along the minor fissure is seen on image #191, and a 5 mm pleural-based nodule in the right upper lobe along the minor fissure is seen on image #202. A 4 mm right lower lobe nodule is seen on image #235. Tiny foci of pleural-based nodularity are seen along the left major fi ssure on images #150 and #155. The majority of these have clearly been present dating back to 2016 an d are of doubtful significance. Mediastinum: There is no mediastinal lymphadenopathy. Emma: Clear. Axillae: There is no axillary lymphadenopathy. Upper abdomen: There is a small hiatal hernia. Scattered calcified hepatic granulomas are incidentall y noted. Partially visualized upper abdominal viscera is within normal limits. Skeletal structures: The skeletal structures are osteopenic. Degenerative change is noted in the shou lders and thoracic spine. No lytic or blastic bony lesions are seen. IMPRESSION: 1. Unremarkable CT angiogram of the thoracic aorta. 2. There is no evidence of pulmonary embolus in the main, lobar, or segmental pulmonary arteries. 3. There is no airspace consolidation typical for pneumonia or pleural effusion. 4. Additional findings as above. ACT 112: Negative or not required by law. Electronically signed by: Angelo Hauser M.D. 08/08/2021 2:06 PM
[2021-08-08] MEDS ORDERED: ASPIRIN CHEW 324 MG PO STA (14:28)
[2021-08-08] MEDS ORDERED: NITROGLYCERIN 2% OINTMENT 30GM TUBE EXT STA (14:28)
[2021-08-08] MEDS ORDERED: GI COCKTAIL ED USE PO ONE (14:56)
--- NOTE | 2021-08-08 15:12 | History & Physical Report ---
Date of Service August 08, 2021 Assessment & Plan (1) Chest pain: Plan: Mr. Barry is a 76 year old male with a history of CAD s/p Intracoronary Stent, Hyperlipidemia, Pulmonary Emboli, GERD, Nephrolithiasis, GERD, Allergic Rhinitis, Chronic Obstructive Airway Disease/Asthma, and frequent bouts of Bronchitis who presented to [facility] ER today and feels as though he has had a bronchitis over the past 3 weeks, with wheezing, coughing, dyspnea. However, earlier today he developed severe anterior chest pain/pressure that radiated to his bilateral lower jaw and straight through to his back that lasted for approximately 5 minutes and then eased up quite a bit -- but the discomfort keeps coming and going at this point but it is much less severe. He denies any associated symptoms -- specifically denying any associated nausea, vomiting, diaphoresis, or dyspnea. These symptom are NOT reminiscent of his past angina pectoris -- he's never had symptoms like this in the past. Patient continues to wheeze and cough. He has been using his Albuterol inhaler more frequently because of his ongoing respiratory symptoms. Patient denies any fevers, chills, headache, stiff neck, sputum production, or night sweats. His initial Troponin I is undetectable. EKG's x 2 show sinus bradycardia with a LAFB, no ST segment deviations or acute changes. CT Scan of Chest shows no evidence of a dissection. Patient does have bilateral pulmonary nodules (that have been present since at least 2016) and a heavily calcified left coronary artery. Recommend the followin. Admit to observation status on telemetry unit. 2. Serial troponin I levels. 3. Continue Aspirin 81 mg daily. 4. Continue Atorvastatin 40 mg daily. 5. Echocardiogram ordered to evaluate wall motion, systolic function. 6. Topical nitroglycerin added in the ER. 7. Lovenox ordered. (2) CAD (coronary artery disease): Plan: History of an intracoronary stent about 6 years ago, details are not known to me. His photographic printer is Dr. Mckeon. (3) Stented coronary artery: Plan: -- As outlined above. (4) Hyperlipidemia: Plan: -- Continue Atorvastatin 40 mg daily. (5) Cough: Plan: Patient has history of chronic obstructive airway disease / asthma and allergic rhinitis. He has had increased cough and wheezing over the past 3 weeks, feels as though he has bronchitis. Chest x-ray shows no acute processes today, and CT scan of the chest shows no evidence infiltrates or pneumonia. -- Continue Albuterol MDI as needed. -- Duoneb nebulizers as needed. -- Consider IV corticosteroids. -- He does not have evidence of an active infection, no fevers, normal WBC#, etc. History of Present Illness Chief Complaint: -- Chest pain radiating to jaw and back. -- CAD s/p Intracoronary Stent approximately 6 years ago. Primary Care Provider: Kacie Hansen DO Mr. Barry is a 76 year old male with a history of CAD s/p Intracoronary Stent, Hyperlipidemia, Pulmonary Emboli, GERD, Nephrolithiasis, GERD, Allergic Rhinitis, Chronic Obstructive Airway Disease/Asthma, and frequent bouts of Bronchitis who presented to [facility] ER today and feels as though he has had a bronchitis over the past 3 weeks, with wheezing, coughing, dyspnea. However, earlier today he developed severe anterior chest pain/pressure that radiated to his bilateral lower jaw and straight through to his back that lasted for approximately 5 minutes and then eased up quite a bit -- but the discomfort keeps coming and going at this point but it is much less severe. He denies any associated symptoms -- specifically denying any associated nausea, vomiting, diaphoresis, or dyspnea. These symptom are NOT reminiscent of his past angina pectoris -- he's never had symptoms like this in the past. Patient continues to wheeze and cough. He has been using his Albuterol inhaler more frequently because of his ongoing respiratory symptoms. Allergies Allergy/AdvReac Type Severity Reaction Status Date / Time acetaminophen Allergy Intermediate RASH Verified 08/08/21 14:23 house dust Allergy Mild itching, Verified 08/08/21 14:23 sneezy, itchy eyes mushroom Allergy Mild sneezy, Verified 08/08/21 14:23 itchy eyes cefazolin AdvReac Intermediate ELEVATED Verified 08/08/21 14:23 LIVER ENZYMES Cephalosporins AdvReac Intermediate ELEVATED Verified 08/08/21 14:23 LIVER ENZYMES grass pollen AdvReac Mild sneezy, Verified 08/08/21 14:23 itchy eyes mold AdvReac Mild sneezy, Verified 08/08/21 14:23 itchy eyes Home Medications Medication Instructions Recorded Confirmed Type aspirin 81 mg tablet,delayed 81 mg PO QAM 01/04/19 08/08/21 History release atorvastatin 40 mg tablet 40 mg PO QAM 01/04/19 08/08/21 History fexofenadine 180 mg tablet 180 mg PO Q2D 01/04/19 08/08/21 History (Prachi Allergy) ibuprofen 200 mg tablet (Advil) 400 mg PO DIRECTED PRN 01/04/19 08/08/21 History lansoprazole 30 mg capsule,delayed 30 mg PO QAM 01/04/19 08/08/21 History release multivitamin 1 tab PO QAM 01/04/19 08/08/21 History potassium citrate 10 mEq (1,080 10 meq PO HS 01/04/19 08/08/21 History mg) tablet,extended release albuterol sulfate 90 mcg/actuation 2 puffs INHALATION Q4H PRN #8.5 gm 10/10/19 08/08/21 Rx aerosol inhaler (Ventolin HFA) montelukast 10 mg tablet 10 mg PO QPM 10/10/19 08/08/21 History (Singulair) cholecalciferol (vitamin D3) 25 25 mcg PO DAILY 01/12/21 08/08/21 History mcg (1,000 unit) capsule (Vitamin D3) famotidine 20 mg tablet (Pepcid) 20 mg PO HS 01/12/21 08/08/21 History Past Med/Surg History Medical History Borderline high cholesterol Dyspnea on exertion LAST USE INHALER 6-8 MON AGO Enlarged prostate GERD (gastroesophageal reflux disease) History of colon polyps History of kidney stones Kidney stones Osteoarthritis Paroxysmal nocturnal dyspnea Surgical History History of appendectomy History of back surgery HX OF LUMBAR LAMINECTOMY AND THEN ORIF LUMBAR History of colonoscopy History of heart artery stent APPROX 4-5 YR AGO, STENT X [address] [facility] - FOLLOWS WITH DR MCKEON History of lithotripsy History of penile implant History of sinus surgery Dr. Man 20+ years ago History of surgery HX JAW SURGERY, NO LIMITATIONS Family History Brother Prostate cancer Congestive heart failure Family history of diabetes mellitus Mother Family history of uterine cancer Social History Smoking Status: Never smoker Second Hand Exposure: Yes (HX); Hx Alcohol Use: No Hx Substance Use: No Preferred Language: Scottish Communication Ability: Effective Dining Room Attendant Required: No Beliefs That Will Affect Care: None marital status: Current Living Situation: Spouse Feels Safe at Home: Yes Review of Systems Review of Systems: Ten point ROS completed and was negative with the exception of what is mentioned in the HPI. Physical Exam Physical Exam: GENERAL: Patient in no acute distress. HEENT: Head is atraumatic, normocephalic. EOM's intact. Facies symmetric. No perioral cyanosis. NECK: No JVD. JVP is at the level of the clavicle sitting upright. Carotid upstrokes are + 2 bilaterally. No bruits are noted. CHEST/LUNGS: Scattered late expiratory wheezes are present bilaterally on forced exhalation. No rales or crackles. CVS: S1 and S2 are regular, bradycardic without obvious murmurs, gallops, or rubs. PMI is nondisplaced. No lifts, heaves, or thrills. No abdominal aortic or renal bruits. ABDOMINAL EXAM: Bowel sounds are present. No masses, organomegaly, or tenderness. EXTREMITIES: No clubbing or cyanosis. No edema. Intact radial pulses bilaterally. NEUROLOGIC EXAM: Patient is awake, alert, and oriented. Pleasant and cooperative. Answers questions appropriately. Speech is clear. Normal movement in all 4 extremities. Gait pattern was not assessed. Medical Collections Specialist: -- Sinus bradycardia to normal sinus rhythm. Results & Data Results & Data ([facility]) Vital Signs (Past 12 Hours) Vital Signs Temp Pulse Resp BP Pulse Ox 08/08/21 14:01 71 13 140/80 97 08/08/21 10:54 36.7 C 66 18 170/83 H 97 Laboratory Results Laboratory Results - last 24 hr 08/08/21 08/08/21 08/08/21 12:47 Unknown Unknown WBC 7.64 RBC 5.17 Hgb 15.7 Hct 46.4 MCV 89.7 MCH 30.4 MCHC 33.8 RDW Std Deviation 45.0 RDW Coeff of Pippa 13.6 Plt Count 158 MPV 10.1 Immature Gran % (Auto) 0.4 Neut % (Auto) 65.9 Lymph % (Auto) 19.8 [place] % (Auto) 6.3 Eos % (Auto) 7.2 Baso % (Auto) 0.4 Neut # (Auto) 5.04 Lymph # (Auto) 1.51 [place] # (Auto) 0.48 Eos # (Auto) 0.55 H Baso # (Auto) 0.03 Immature Gran # (Auto) 0.03 H Sodium 137 Potassium 4.0 Chloride 107 Carbon Dioxide 24 Anion Gap 6.0 BUN 24 H Creatinine 1.27 Est Cr Clr Drug Dosing 46.8 Est GFR ( Amer) 62.7 Est GFR (Non-Af Amer) 54.1 BUN/Creatinine Ratio 18.6 Glucose 123 H Calcium 9.6 Total Bilirubin 0.5 AST 24 ALT 42 Alkaline Phosphatase 88 Troponin I < 0.015 Total Protein 7.2 Albumin 3.6 Globulin 3.6 Albumin/Globulin Ratio 1.0 Lipase 213 SARS-CoV-2 (PCR) NEGATIVE Influenza Type A (PCR) Negative Influenza Type B (PCR) Negative RSV (RT-PCR) Negative Diagnostic Findings CTA Chest 08/08/21: Thyroid: Imaged portions of the thyroid gland are normal in size and attenuation. Thoracic aorta: No intramural hematoma is seen on the unenhanced series. The thoracic aorta is normal in caliber and demonstrates standard 3-vessel arch anatomy. No dissection is seen. The arch vessels are widely patent. Pulmonary vasculature: The pulmonary trunk is normal in caliber. There are no filling defects within the main, lobar, or segmental pulmonary arteries to suggest pulmonary embolus. Heart: The heart is top normal in size and without pericardial effusion. The left coronary artery is densely calcified. Lungs and pleural spaces: No airspace consolidation or pleural effusion is identified. Scarring/atelectasis is present the lung bases. The trachea and central airways are clear. A 6 mm pleural-based nodule in the right middle lobe along the minor fissure is seen on image #191, and a 5 mm pleural-based nodule in the right upper lobe along the minor fissure is seen on image #202. A 4 mm right lower lobe nodule is seen on image #235. Tiny foci of pleural-based nodularity are seen along the left major fissure on images #150 and #155. The majority of these have clearly been present dating back to 2016 and are of doubtful significance. Mediastinum: There is no mediastinal lymphadenopathy. Emma: Clear. Axillae: There is no axillary lymphadenopathy. Upper abdomen: There is a small hiatal hernia. Scattered calcified hepatic granulomas are incidentally noted. Partially visualized upper abdominal viscera is within normal limits. Skeletal structures: The skeletal structures are osteopenic. Degenerative change is noted in the shoulders and thoracic spine. No lytic or blastic bony lesions are seen. IMPRESSION: 1. Unremarkable CT angiogram of the thoracic aorta. 2. There is no evidence of pulmonary embolus in the main, lobar, or segmental pulmonary arteries. 3. There is no airspace consolidation typical for pneumonia or pleural effusion. 4. Additional findings as above. CXR 08/08/21: Cardiomediastinal and hilar silhouettes are within normal limits. Calcified plaque of the thoracic aorta. There is no pneumothorax, pleural effusion, airspace consolidation or overt pulmonary edema. The bones appear grossly intact. IMPRESSION: No acute process. Code Status & VTE Plan Code Status Full Code VTE Prophylaxis Plan VTE Prophylaxis will be ordered: Yes Supervising Physician Co-Signing Physician Notes PA Supervision Note: I personally saw and examined the patient. I verified all no points and agree with HIRAM Luciano with the following exceptions and/or additions: This patient is a 76-year-old male with history of CAD, nephrolithiasis, PE, hyperlipidemia, allergic rhinitis, and some sort of undiagnosed reactive airway disease, who presents to the ER with coughing and wheezing x3 weeks and then acute onset of central substernal chest pain radiating to the bilateral neck and jaw that started earlier today. It was somewhat relieved with nitroglycerin in the ER but still ongoing and troponin and EKG are negative. We did give him a GI cocktail in the ER but he reports this made no difference. The pain does feel better if he bends over and puts his head between his knees. It is not worsened with palpation of the chest, but he is tender in the upper back and neck muscle area as well as under the jaw and in the anterior neck. History and ROS reviewed as above Vitals reviewed Gen: AAOx3, NAD HEENT: Anicteric sclerae, EOMI, no anterior cervical lymphadenopathy palpated, positive tenderness palpation of her cervical paraspinous muscles and trapezius muscles bilaterally, neck is supple, mucous membranes moist, oropharynx clear CV: RRR no mgr nl S1S2 Pulm: CTAB except occasional rhonchi on the right Abd: +BS soft NT ND no masses or hernias Ext: No edema, 2+ DP pulses Skin: No rashes, warm/dry Neuro: Full strength throughout Radiology studies reviewed, laboratory values reviewed, ECG reviewed 76-year-old male here with history as above with acute onset of chest pain in the setting of bronchitis x3 weeks. CT angiogram chest negative for PE and dissection, no pneumonia. Troponin negative x1, ECG negative for ischemia Symptoms not relieved with GI cocktail Could be musculoskeletal versus inflammation or pleuritic type pain from bronchitis? He does report albuterol seems to help him-continue this Add on prednisone 40 mg p.o. once daily x5-day burst and see if this improves symptoms by the morning Continue to trend serial troponin to rule out acute coronary syndrome given history of CAD in the past Can likely discharged home tomorrow PG Care Time/CCT Total # of Minutes Spent Total Time Spent with Patient: Total time spent is greater than 50% in coordination of care (as documented) at patient's floor/unit and/or counseling patient:35 Coding Level of Care Code INT OBSERVATION CARE 70M LVL 3 Diagnoses Chest pain R07.9 CAD (coronary artery disease) I25.10 Stented coronary artery Z95.5 Hyperlipidemia E78.5 Cough R05 Time Spent (min) 54
[2021-08-08] MEDS ORDERED: predniSONE 20 MG TAB PO STA (17:55)
[2021-08-08] MEDS ORDERED: POLYETHYLENE (MIRALAX) 17 GM PACK PO PRN (18:23)
[2021-08-08] MEDS ORDERED: ALBUT/IPRATROP 3MG/0.5MG NEB 3 ML VIAL NEB PRN (18:23)
[2021-08-08] MEDS ORDERED: NITROGLYCERIN SL 0.4 MG/TAB TAB SL PRN (18:23)
[2021-08-08] MEDS ORDERED: MAGNESIUM HYDROXIDE SUSP 30 ML UDC PO PRN (18:23)
[2021-08-08] MEDS ORDERED: ONDANSETRON INJ 2 MG/ML 2 ML VIAL IV PRN (18:23)
[2021-08-08] MEDS ORDERED: ALBUTEROL HFA 8 GM INHALER INH PRN (18:23)
[2021-08-08] MEDS ORDERED: MoRPHine SULFATE 2 MG/ML CARP IV PRN ×2 (18:23→19:29)
[2021-08-08] MEDS ORDERED: ALUMINUM/MAGNESIUM SUSP 30 ML UDC PO PRN (18:23)
[2021-08-08] MEDS ORDERED: ZOLPIDEM TARTRATE 5 MG TAB PO PRN (18:23)
[2021-08-08] MEDS ORDERED: ENOXAPARIN INJ 40 MG/0.4 ML SYR SQ SCH (19:00)
[2021-08-08] MEDS ORDERED: FAMOTIDINE 20 MG TAB PO SCH (21:00)
[2021-08-08] MEDS ORDERED: POTASSIUM CITRATE 10 MEQ TAB PO SCH (21:00)
[2021-08-08] MEDS ORDERED: MONTELUKAST SODIUM 10 MG TABLET PO SCH (21:00)
[2021-08-09 06:17] LABS: Basophils # (auto) 0.01 K/uL (0-0.2); Basophils % (auto) 0.1 %; Eosinophils # (auto) 0.01 K/uL (0-0.5); Eosinophils % (auto) 0.1 %; Hematocrit (blood only) 44.2 % (42-52); Hemoglobin 14.9 g/dL (14.0-18.0); Immature Granulocytes # (auto) 0.01 K/uL (0.00-0.02); Immature Granulocytes % (auto) 0.1 %; Lymphocytes # (auto) 0.75 K/uL (1.2-3.4); Lymphocytes % (auto) 8.9 %; Mean Corpuscular Hemoglobin 30.5 pg (25-34); Mean Corpuscular Hgb Conc 33.7 g/dL (32-36); Mean Corpuscular Volume 90.4 fL (80-100); Mean Platelet Volume 9.8 fL (7.4-10.4); Monocytes # (auto) 0.04 K/uL (0.11-0.59); Monocytes % (auto) 0.5 %; Neutrophils % (auto) 90.3 %; Platelet Count 169 K/uL (130-400); RDW Coefficient of Variation 13.5 % (11.5-14.5); RDW Standard Deviation 44.6 fL (36.4-46.3); Red Blood Count 4.89 M/uL (4.7-6.1); White Blood Count 8.42 K/uL (4.8-10.8)
[2021-08-09 06:48] LABS: BUN Creatinine Ratio 19.7 (10-20); Calcium 9.3 mg/dl (8.5-10.1); Creatinine Clr Calc Pharmacy 41.8 ml/min; Est GFR (African American) 54.8 ml/min; Est GFR (Non-African American) 47.3 ml/min; Potassium 4.5 mmol/L (3.5-5.1)
[2021-08-09] MEDS ORDERED: MULTIVITAMIN TAB PO SCH (09:00)
[2021-08-09] MEDS ORDERED: CHOLECALCIFEROL 1,000 UNITS 25 MCG TAB PO SCH (09:00)
[2021-08-09] MEDS ORDERED: FEXOFENADINE HCL 180 MG TAB PO SCH (09:00)
[2021-08-09] MEDS ORDERED: ATORVASTATIN 40 MG TAB PO SCH (09:00)
[2021-08-09] MEDS ORDERED: predniSONE 20 MG TAB PO SCH (09:00)
[2021-08-09] MEDS ORDERED: PANTOprazole 40 MG TAB PO SCH (09:00)
[2021-08-09] MEDS ORDERED: ASPIRIN 81 MG ECTAB PO SCH (09:00)
--- NOTE | 2021-08-09 10:52 | XCELERA ---
[id number]
--- NOTE | 2021-08-09 11:31 | Electrocardiogram Report ---
Test Reason : Blood Pressure : / mmHG Vent. Rate : 064 BPM Atrial Rate : 064 BPM P-R Int : 178 ms QRS Dur : 074 ms QT Int : 414 ms P-R-T Axes : 052 -55 045 degrees QTc Int : 427 ms Normal sinus rhythm with sinus arrhythmia Left anterior fascicular block Abnormal ECG When compared with ECG of 08-AUG-2021 10:59, No significant change was found Confirmed by Pablo Yepez ([id number]) on 08/09/2021 11:31:21 AM Referred By: REFERRED SELF Confirmed By:Pablo Yepez
--- NOTE | 2021-08-09 11:50 | Electrocardiogram Report ---
Test Reason : Blood Pressure : / mmHG Vent. Rate : 056 BPM Atrial Rate : 056 BPM P-R Int : 176 ms QRS Dur : 076 ms QT Int : 414 ms P-R-T Axes : 041 -54 046 degrees QTc Int : 399 ms Sinus bradycardia Left anterior fascicular block Abnormal ECG When compared with ECG of 08-AUG-2021 14:38, (unconfirmed) No significant change was found Confirmed by Pablo Yepez ([id number]) on 08/09/2021 11:50:17 AM Referred By: REFERRED SELF Confirmed By:Pablo Yepez
--- NOTE | 2021-08-09 11:53 | Electrocardiogram Report ---
Test Reason : Blood Pressure : / mmHG Vent. Rate : 058 BPM Atrial Rate : 058 BPM P-R Int : 174 ms QRS Dur : 074 ms QT Int : 408 ms P-R-T Axes : 037 -52 059 degrees QTc Int : 400 ms Sinus bradycardia Left anterior fascicular block Abnormal ECG When compared with ECG of 08-AUG-2021 21:06, (unconfirmed) No significant change was found Confirmed by Pablo Yepez ([id number]) on 08/09/2021 11:52:37 AM Referred By: REFERRED SELF Confirmed By:Pablo Yepez
--- NOTE | 2021-08-09 15:20 | Discharge Summary ---
Date of Service August 09, 2021 Admission HPI Per Admitting Provider Mr. Barry is a 76 year old male with a history of CAD s/p Intracoronary Stent, Hyperlipidemia, Pulmonary Emboli, GERD, Nephrolithiasis, GERD, Allergic Rhinitis, Chronic Obstructive Airway Disease/Asthma, and frequent bouts of Bronchitis who presented to [facility] ER today and feels as though he has had a bronchitis over the past 3 weeks, with wheezing, coughing, dyspnea. However, earlier today he developed severe anterior chest pain/pressure that radiated to his bilateral lower jaw and straight through to his back that lasted for approximately 5 minutes and then eased up quite a bit -- but the discomfort keeps coming and going at this point but it is much less severe. He denies any associated symptoms -- specifically denying any associated nausea, vomiting, diaphoresis, or dyspnea. These symptom are NOT reminiscent of his past angina pectoris -- he's never had symptoms like this in the past. Patient continues to wheeze and cough. He has been using his Albuterol inhaler more frequently because of his ongoing respiratory symptoms. Principal Diagnosis Chest pain NOS Cough Discharge Exam Constitutional WD/WN, vitals as above Eyes EOM intact bilaterally; no conjunctival abnormality ENMT external ear and nose normal, oropharynx normal Neck trachea midline, no thyromegaly normal visual inspection Respiratory normal respiratory effort, lungs clear to auscultation no respiratory distress Cardiovascular RRR, no murmur, no edema Gastrointestinal (Abdomen) Inspection/Auscultation: abdomen normal to inspection; abdomen not distended Musculoskeletal no cyanosis or clubbing, extremities motor strength 5/5 Skin no rashes, warm and dry Neurologic moves all extremities and awake Psychiatric Orientation: alert, oriented to person and cooperative Discharge Data Allergies Allergy/AdvReac Type Severity Reaction Status Date / Time acetaminophen Allergy Intermediate RASH Verified 08/08/21 14:23 house dust Allergy Mild itching, Verified 08/08/21 14:23 sneezy, itchy eyes mushroom Allergy Mild sneezy, Verified 08/08/21 14:23 itchy eyes cefazolin AdvReac Intermediate ELEVATED Verified 08/08/21 14:23 LIVER ENZYMES Cephalosporins AdvReac Intermediate ELEVATED Verified 08/08/21 14:23 LIVER ENZYMES grass pollen AdvReac Mild sneezy, Verified 08/08/21 14:23 itchy eyes mold AdvReac Mild sneezy, Verified 08/08/21 14:23 itchy eyes Consultations 08/08/21 14:32 ED Decision to Admit Stat Ordered Studies 08/08/21 13:27 CT angio chest dissec wo/w con Stat Hospital Course (1) Chest pain: Heart score ~5. Troponins ruled out ACS. Echo was stable from prior in record from 01/2020 at [facility]. Discussed with patient and cardiology who felt o/p f/u with possible stress with Dr. Mckeon was appropriate. No recurrence of chest pain while in the hospital. (2) CAD (coronary artery disease): History of an intracoronary stent about 6 years ago, details are not known to me. His pipe assembly worker is Dr. Mckeon. (3) Stented coronary artery: -- As outlined above. (4) Hyperlipidemia: -- Continue Atorvastatin 40 mg daily. (5) Cough: Patient has history of chronic obstructive airway disease / asthma and allergic rhinitis. He has had increased cough and wheezing over the past 3 weeks, feels as though he has bronchitis. Chest x-ray shows no acute processes today, and CT scan of the chest shows no evidence infiltrates or pneumonia. -- Continue Albuterol MDI as needed. -- Duoneb nebulizers as needed. -- Admitting provider started prednisone which he felt improved his cough. Discharged with Medrol-Dosepak. Will need PCP or allergy f/u. His allergy note from 08/2020 indicates a mild obstructive pattern to PFTs, so could consider Spiriva in the future. Total Time Total Time Spent Total Time Spent (In Minutes): 30 Discharge Plan Discharge Items Patient Disposition: Home - Self-Care Reason For Visit: CHEST PAIN, CAD Discharge Diagnosis: Chest pain Condition on Discharge: Good Activity: Resume your previous activity Non-emergency contact: Primary Care Provider and Qa Software Tester Call non-emergency contact if: your symptoms worsen Follow-up/Referrals: Florentino Mckeon DO [Physician] - (Please see Dr. Mckeon this week.) Kacie Hansen DO [Primary Care Provider] - Diet: Heart Healthy Addtl Attending Provider Instructions: Mr. Barry, You came to the hospital with chest pain. This chest pain was concerning for being a cardiac cause just because of your history and the type of symptoms you had. Fortunately, you had 3 troponins which were all negative. As we discussed, the troponin is an enzyme found only in the heart that is released into the blood stream when you have a heart attack. Three negative troponins means that with 100% certainty, you *did not* have a heart attack! This is great news! In addition, your echo (ultrasound of your heart) was stable from a year and a half ago, so again, this means your heart is squeezing well and has no areas that look like they have been previously damaged! More great news! I discussed your case with Dr. Mckeon, and he felt that he would like to see you and consider a stress test together. The nurse practitioner who works with Dr. Mckeon, Rosette Evangelista, is working to arrange a follow-up appointment this week or next week at the latest. At that time, you guys can work together on arranging a stress test if you feel it is warranted. If you have further chest pain of this type, please call Dr. Mckeon's office right away. If you cannot get word from them promptly, please return to the hospital. For your cough, please take the Medrol dosepak. You may need to start Spiriva as you had mild obstructive lung disease. This may be more beneficial than repeating oral sets of steroids. Pending Studies at Discharge: No Stand-Alone Forms: [facility] [employer], Smoking Cessation Medications and DC Order Prescriptions: New methylprednisolone [Medrol (Jose)] 4 mg tablets,dose pack See Rx Instructions .ROUTE .COMPLEX Qty: 21 RF: 0 Continued montelukast [Singulair] 10 mg tablet 10 mg PO QPM RF: 0 albuterol sulfate [Ventolin HFA] 90 mcg/actuation HFA aerosol inhaler 2 puffs inhalation Q4H PRN (Reason: Wheezing and dyspnea ) Qty: 8.5 RF: 3 multivitamin Tablet 1 tab PO QAM RF: 0 atorvastatin 40 mg tablet 40 mg PO QAM RF: 0 fexofenadine [Prachi Allergy] 180 mg Tablet 180 mg PO Q2D RF: 0 aspirin 81 mg Tablet,Delayed Release (Dr/Ec) 81 mg PO QAM RF: 0 potassium citrate 10 mEq (1,080 mg) tablet extended release 10 meq PO HS RF: 0 lansoprazole 30 mg capsule,delayed release(DR/EC) 30 mg PO QAM RF: 0 ibuprofen [Advil] 200 mg Tablet 400 mg PO DIRECTED PRN (Reason: Pain) RF: 0 famotidine [Pepcid] 20 mg Tablet 20 mg PO HS RF: 0 cholecalciferol (vitamin D3) [Vitamin D3] 25 mcg (1,000 unit) Capsule 25 mcg PO DAILY RF: 0 Discharge Orders: Discharge Order (Routine); Ordered 08/09/21 Ordered By: Bradley Eubanks Admission Data Admit Date/Time: 08/08/21 14:53 Attending Provider: Bradley Eubanks Admit Provider: Casandra Pereira Primary Care Provider: aKcie Hansen Other Providers: Bradley Eubanks Other Interventions: Discharge Summary Assessment (RN) Last Done: 08/09/21 14:06 Coding Level of Care Code 31941 OBS Care - Discharge Diagnoses Chest pain R07.9 CAD (coronary artery disease) I25.10 Stented coronary artery Z95.5 Hyperlipidemia E78.5 Cough R05
== END 2021-08-09 14:36 | disposition home or self-care (01) ==
LOC: ED 10:51 → EDINP 10:51 → SUATTDRO 14:53 → EDINP 18:22